=== PATIENT | male | born 2000 | race Two or more races ===

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

== ENCOUNTER 2021-08-25 08:11 | Emergency (ER) | payer SELFPAY ==
[2021-08-25 08:21] VITALS: PULSE 68
[2021-08-25 09:46] LABS: ESTIMATED GFR > 60 mL/min (>60)
== END 2021-08-25 11:35 | disposition home or self-care (01) ==
LOC: JD.ED 08:11
DX: R07.89 Other chest pain (principal)
CPT/HCPCS: 36415; 71046; 71046-26; 80053; 82947; 84484; 85025; 85379; 86140; 93005; 93010; 99284; 99285-25